=== PATIENT | male | born 2000 ===

== ENCOUNTER 2025-03-26 16:23 | Emergency (ER) | payer MEDICAID, OTHER, SELFPAY ==
[2025-03-26 16:54] VITALS: BP 119/80; PULSE 81; RESP 16; TEMP 36.6; O2SAT 96; BMI 27.8
--- NOTE | 2025-03-26 16:57 | ED_ITS ---
HPI - Skin/Abscess/Foreign Bdy General Chief complaint: Wound/Laceration Stated complaint: hurt hip while coming down ladder Time Seen by Provider: 03/26/25 23:05 Source: patient Limitations: language barrier History of Present Illness ED Provider: Ginny Elliott PA-C HPI narrative: 24-year-old male presents with laceration. Patient states he was doing work in the home, he subsequently stood up, lacerating his right lateral buttock on a sharp object. Unclear if tetanus is up-to-date. Related Data Allergies Allergy/AdvReac Type Severity Reaction Status Date / Time No Known Allergies Allergy Verified 03/26/25 16:56 Review of Systems Review of Systems: Yes all other systems are reviewed and are negative Constitutional: Constitutional: Denies fatigue and Denies fever(s) Musculoskeletal: Musculoskeletal: Denies arthralgias and Denies joint swelling Integumentary/Breasts: Skin/Breast: Denies erythema and Reports wounds Endocrine: Endocrine: Denies fatigue PMFSH Past Medical History Attestation statement: The following information was validated with the patient. Social History Social History Advance Directives: No Advance Directives Information Provided: No Do you have a plan to hurt others: No Plan Physical Exam Vital Signs: Vital Signs: Last Vital Signs Temp 97.7 F 03/27/25 01:00 Pulse 61 03/27/25 01:00 Resp 16 03/27/25 01:00 BP 117/80 03/27/25 01:00 Pulse Ox 99 03/27/25 01:00 O2 Del Method Room Air 03/27/25 01:00 BMI result Body Mass Index 27.8 Const: Other: Alert Orientation/consciousness: patient oriented x3 Resp: Effort & Inspection: normal respiratory effort Cardio: Other: normal peripheral perfusion Skin: Other: warm dry no rash Neuro: General: patient oriented x3, gait normal, no focal motor deficits and CN's II-XI intact bilaterally Extrem: Other: 6 cm oval laceration noted over right lateral hip, not bleeding deep to subcu tissue Psych: Other: warm dry no rash Course Course Course Narrative: This is a Rapid Medical Examination (RME) performed by Arun Warner PA-C in triage. Full HPI, ROS, assessment and treatment plan per primary provider in the Main ED. Hx: 24 yo M here for eval of laceration to left buttock sustained [employer]. reports accident cutting his buttock w/ a piece of iron. the piece just grazed the buttock, no puncture. unsure of tdap status. PE/vitals: laceration to left buttock/hip involving sub q tissue. no puncture wound. no active bleeding. dressed in triage. Plan: tdap booster, will require repair. Medications Administered Discontinued Medications Generic Name Dose Route Start Last Admin Trade Name Freq PRN Reason Stop Dose Admin Acetaminophen 975 mg 03/26/25 21:03 03/26/25 21:09 Acetaminophen 325 Mg Tablet PO 03/26/25 21:04 975 mg ONCE ONE Administration Diphtheria/Tetanus/Acell Pertussis 0.5 ml 03/26/25 23:06 03/26/25 23:33 Diphth,Pertus(Acell),Tet Adult 0.5 Ml Syringe IM 03/26/25 23:07 0.5 ml .ONCE ONE Administration Lidocaine/Epinephrine 10 ml 03/27/25 00:00 03/27/25 00:00 Lidocaine Hcl 1%/Epi 1:100,000 10 Ml Vial INFILTRATI 03/27/25 00:01 10 ml ONCE ONE Administration Lidocaine/Epinephrine 10 ml 03/27/25 00:00 03/27/25 02:41 Lidocaine Hcl 1%/Epi 1:100,000 20 Ml Vial INFILTRATI 03/27/25 00:01 Not Given ONCE ONE Lidocaine/Epinephrine 10 ml 03/27/25 00:00 03/27/25 00:00 Lidocaine Hcl 1%/Epi 1:100,000 10 Ml Vial INFILTRATI 03/27/25 00:01 10 ml ONCE ONE Administration Medical Decision Making Medical Decision Making MDM Narrative: 24-year-old male presents with laceration. Patient states he was doing work in the home, he subsequently stood up, lacerating his right lateral buttock on a sharp object. Unclear if tetanus is up-to-date. no chronic issues History: Per patient I have considered the following differential diagnoses: Laceration, contusion, abrasion Plan: Patient has a simple laceration, we will update his tetanus no indication for imaging Procedures Laceration Laceration 1: Site: lower extremity Side (If applicable): right Size (cm): 6 Description: other ( oval) Depth: simple, single layer Local Anesthetic: lidocaine 1% Amount of anesthesia used (mL): 15 Pre-repair: irrigated extensively Skin layer closed with: nylon Size (cm): 3-0 Number of sutures: 11 Technique: simple, interrupted and horizontal mattress Discharge Plan Discharge Clinical Impression: Laceration Patient Disposition: Home, Self-Care Instructions: Laceration (ED) Additional Instructions: 11 stitches were used to repair the wound. They can be removed in 7 days. You can follow up with your primary care or return to the emergency department for suture removal. Watch for signs of infection which would include redness, swelling, pus draining from the site or fever. If you develop any of these symptoms seek medical attention. Otherwise follow up with primary care as needed. Your tetanus vaccine was updated today it is valid for 10 years. Interventions: ED Discharge Assessment Last Done: 03/27/25 01:00 Discharge Date/Time: 03/27/25 01:00 Print Language: Persian
[2025-03-26] MEDS: Acetaminophen 325 MG TABLET 975 MG PO (21:09)
[2025-03-26] MEDS: Diphth,Pertus(ACell),Tet Adult 0.5 ML SYRINGE IM (23:33)
[2025-03-27] MEDS: Lidocaine HCl 1%/Epi 1:100,000 10 ML VIAL INFILTRATI ×2
[2025-03-27 00:48] VITALS: BP 117/80; PULSE 61; RESP 16; TEMP 36.5; O2SAT 99
[2025-03-27 01:00] VITALS: BP 117/80; PULSE 61; RESP 16; TEMP 36.5; O2SAT 99
== END 2025-03-27 01:00 | disposition home or self-care (01) ==
PROVIDERS: Emergency Provider Emergency Medicine
DX: S81.811A Laceration without foreign body, right lower leg, initial encounter (principal); X58.XXXA Exposure to other specified factors, initial encounter; W11.XXXA Fall on and from ladder, initial encounter; Y93.9 Activity, unspecified; Y92.9 Unspecified place or not applicable; Y99.8 Other external cause status; Z23 Encounter for immunization
CPT/HCPCS: 12032; 90471; 90715; 99283; 99284; J2004

== ENCOUNTER 2025-04-01 16:11 | Emergency (ER) | payer MEDICAID, OTHER, SELFPAY ==
[2025-04-01 16:24] VITALS: BP 118/76; PULSE 84; RESP 18; TEMP 36.1; O2SAT 97; BMI 27.4
--- NOTE | 2025-04-01 16:41 | ED_ITS ---
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 He was seen here 6 days ago on 03/26/2025 for a left buttocks laceration He had 11 sutures placed in his requesting them to be removed. He has no complaints or concerns pain Denies any pain, drainage from the area. No fevers or chills Related Data Allergies Allergy/AdvReac Type Severity Reaction Status Date / Time No Known Allergies Allergy Verified 04/01/25 16:26 Review of Systems Integumentary/Breasts: Skin/Breast: Reports wounds PMFSH Social History Social History Advance Directives: No Advance Directives Information Provided: No Physical Exam ED Vital Signs: Vital Signs - 24 hr 04/01/25 16:24 Temperature 96.9 F Pulse Rate 84 Respiratory Rate 18 Blood Pressure 118/76 Pulse Oximetry 97 Oxygen Delivery Method Room Air BMI result Body Mass Index 27.4 Const General: healthy appearing, comfortable, no acute distress, alert and awake Nutritional Appearance: well nourished Orientation/consciousness: patient oriented x3 HENMT Head: Yes normocephalic and Yes atraumatic Eyes Eyelids: Yes eyelids normal Conjunctivae: conjunctivae normal Sclerae: sclerae normal Corneas: corneas normal Pupils: Equal, round and reactive pupils present EOM: EOMs intact bilaterally Neck Neck: Yes full ROM Resp Effort & Inspection: normal respiratory effort, able to speak in complete sentences and not labored Skin Other: 11 sutures intact to the left buttocks region. There was no dehiscence no surrounding wound is healing well General skin exam: elasticity normal Neuro General: patient oriented x3 Cranial nerves: Yes Equal, round and reactive pupils present and Yes Bilaterally intact EOM present Cognition (Neuro): normal cognition Extrem Other: Moving all extremities well without any obvious deformities Medical Decision Making Medical Decision Making [facility] Narrative: 24-year-old male presents for evaluation of suture removal. The sutures were only place 6 days ago, however the wound appears very well healed. I was able to remove all 11 sutures without complication. The wound remained intact, it was cleaned and dressed Differential Diagnosis Differential Diagnoses: The differential diagnosis associated with the presentation includes Suture removal Skin tear Laceration Acute wound Discharge Plan Discharge Clinical Impression: Encounter for removal of sutures Patient Disposition: Home, Self-Care Instructions: Stitches Removal (ED) Additional Instructions: You had 11 sutures removed without complication. Keep the area clean and dry Follow-up with your primary doctor Print Language: Faroese
[2025-04-01 17:02] VITALS: BP 118/76; PULSE 84; RESP 18; TEMP 36.1; O2SAT 97
== END 2025-04-01 17:03 | disposition home or self-care (01) ==
PROVIDERS: Emergency Provider Emergency Medicine
DX: Z48.02 Encounter for removal of sutures (principal)
CPT/HCPCS: 99282